=== PATIENT | male | born 1950 | race Caucasian/White ===

== ENCOUNTER → 2017-08-19 14:50 | Outpatient (CLI) | payer MEDICARE, OTHER, SELFPAY | PROVIDERS: Family Provider Family Medicine; PCP Family Medicine; Visit Provider Family Medicine | DX: L02.412 Cutaneous abscess of left axilla (principal); L03.112 Cellulitis of left axilla | CPT/HCPCS: 87070; 87077; 87186; 87205 ==

== ENCOUNTER → 2018-11-21 09:29 | Outpatient (CLI) | payer MEDICARE, OTHER, SELFPAY ==
[2017-07-23 06:22] VITALS: BMI 31.3
[2018-11-21 12:19] LABS: Hematocrit 42.2 % (40-54); Hemoglobin 13.7 g/dl (13.0-16.5); Mean Corp Hgb Conc 32.5 g/gl (32-36); Mean Corpuscular Hgb 29.8 pg (27.0-32.0); Mean Corpuscular Volume 91.9 fL (80-94); RBC Distribution Width CV 12.9 % (11.6-14.6); RBC Distribution Width SD 42.9 fl (35.1-43.9); Red Blood Count 4.59 M/mm3 (4.6-6.2); White Blood Count 6.7 K/mm3 (4.4-11.0)
[2018-11-21 12:20] LABS: Absolute Lymphocyte Count 1.36 X10^3/ul (0.83-4.51); Absolute Neutrophil Count 4.5 X10^3/uL (2.0-7.7); Basophil# 0.05 X10^3/uL; Basophil% 0.7 % (0-1); Eosinophil# 0.17 X10^3/uL; Eosinophils% 2.5 % (0-5); Lymphocyte # 1.36 X10^3/ul (4.0); Lymphocyte % 20.2 % (19-41); Mean Platelet Vol. 10.1 fl (6.2-12.0); Monocyte# 0.67 X10^3/uL; Monocyte% 9.9 % (0-10); Neutrophil # 4.47 X10^3/uL (2.7-7.7); Neutrophil % 66.4 % (47-70); POSITIVE COUNT NO; POSITIVE DIFFERENTIAL NO; POSITIVE MORPHOLOGY NO; Platelet Count 263 K/mm3 (150-450)
[2018-11-21 12:36] LABS: ALB/GLOB Ratio 0.7 RATIO (0.9-2.4); AST(SGOT) 18 U/L (15-37); Alanine Aminotransfer ALT/SGPT 28 U/L (16-61); Albumin, Serum 3.1 g/dL (3.2-5.0); Alkaline Phosphatase 74 U/L (45-117); Anion Gap 3 (5-15); BUN 20 mg/dL (7-18); BUN/Creat Ratio 22.7 RATIO (10-20); Calcium,Total 8.4 mg/dL (8.5-10.1); Chloride 107 mmol/L (98-107); Cholesterol 145 mg/dL (200); Creatinine, Serum 0.88 mg/dL (0.70-1.30); EST Glomerular Filtration Rate 91 mL/min (>60); Est Glom Filt Rate - Afr Amer 110 mL/min (>60); Globulin 4.3 g/dL (2.2-4.2); Glucose 91 mg/dL (74-106); High Density Lipoprotein 35 mg/dL; PSA,Total - Annual Screen 2.42 ng/mL (0.00-4.00); Protein, Total 7.4 g/dL (6.4-8.2); Sodium Level 139 mmol/L (136-145); Triglycerides 105 mg/dL; Very Low Density Lipoprotein 21 mg/dL (5-40)
== END ==
LOC: LAB.FUTURE 07-19 10:33 → BFHLAB 12-22 12:11
PROVIDERS: Family Provider Family Medicine; PCP Family Medicine; Visit Provider Family Medicine
DX: R53.83 Other fatigue (principal); E78.5 Hyperlipidemia, unspecified; Z12.5 Encounter for screening for malignant neoplasm of prostate
CPT/HCPCS: 36415; 80053; 80061; 84153; 85025; G0103

== ENCOUNTER 2019-07-28 14:46 | Emergency (ER) | payer MEDICARE, OTHER, SELFPAY ==
[2019-07-28 14:47] VITALS: BP 140/76; PULSE 89; RESP 16; TEMP 36.9; O2SAT 97; BMI 30.5
--- NOTE | 2019-07-28 15:18 | ED.DCSUM_ITS ---
History of Present Illness Chief Complaint: Upper Extremity Injury Informant: Patient Occurred: Today Narrative: Patient is a 69-year-old male with no past medical history presenting with atraumatic swelling of his right elbow. Patient states he is right-hand dominant. He states that over the course of today he has had increased swelling over the back of his elbow. He does feel some warmth to the area. He has some slight pressure but denies any significant pain. He denies any systemic symptoms such as fever, chills, nausea, vomiting or numbness/tingling. Patient is especially concerned because his ldewja-db-vdw had a septic elbow in the past that ended up killing him. Patient denies any new activities or repetitive motions. He notes he had a viral illness about a week and a half ago but is not sure if that is related. Past Medical History - Allergies and Home Meds Allergies/Adverse Reactions: Allergies No Known Allergies Allergy (Verified 07/28/19 14:46) Primary Care Physician: Gerber Everett DO [Primary Care Provider] - Past Medical History: None Surgical History: noncontributory Lives: Spouse/ Significant Other Smoking Status: Never smoker - Family History father Family History: Reports: Cancer Review of Systems General: Denies: Chills, Fever, Sweats ENT: Denies: Rhinorrhea, Sore throat Cardiovascular: Denies: Chest pain, Palpitations Respiratory: Denies: Dyspnea, Cough, Dyspnea on exertion Gastrointestinal: Denies: Abdominal pain, Nausea, Vomiting, Diarrhea Genitourinary: Denies: Dysuria, Hematuria, Frequency Musculoskeletal: Reports: Swelling - right elbow , Extremity Pain - right elbow . Denies: Back pain Skin: Denies: Rash, Abrasions, Wounds Neurological: Denies: Headache, Weakness, Numbness Physical Exam Vital Signs/Narrative: Vital Signs Temp Pulse Resp BP Pulse Ox 07/28/19 14:47 98.5 F 89 16 140/76 H 97 Inital Vital Signs reviewed: Yes Right Elbow: Edema, - - Normal range of motion. Large 6 cm x 3 cm area of swelling consistent with enlarged bursa. No joint effusion noted. Normal range of motion. No overriding erythema or warmth. Negative for: Abrasion, Contusion General: Well nourished, Well developed Head: Normocephalic, Atraumatic Eyes: Perrl, EOMI ENT: No Trauma, Moist Mucous Membranes Neck: Nontender, Full ROM Cardiovascular: Regular rate, Regular rhythm, No murmurs Respiratory: No distress, CTA bilaterally, Chest nontender Abdomen: Soft, Nontender, Nondistended, Normal bowel sounds Back: Nontender Skin: Normal color, No rash Neurological: Alert, Oriented x3, Cranial nerves II-XII grossly intact, Normal S trength, Normal Sensation Psychological: Normal affect Diagnostic/Tx/Re-eval - Medical Decision Making Patient has atraumatic swelling of his right elbow. He has mild pressure but no significant pain. No joint effusion associated with it. No overlying erythema or warmth. Initially I thought it was a inflamed/enlarged bursa. Aspiration only showed kaley blood and I suspect this is actually hematoma. Patient not sure exactly what could have caused it. He is placed in an Toni wrap. Patient will follow-up with his orthopedist, Dr. Hernández. He is counseled on signs of infection and reasons to return the emergency room. He verbalizes agreement understand this plan. He is discharged home in stable condition. Procedures Procedure(s): Aspiration. Sterile technique used. Right elbow is cleansed with Betadine and allowed to dry. 23-gauge needle used to inject a small amount of 1% lidocaine without epinephrine subcutaneously in the posterior elbow. Once adequate analgesia was achieved an 18-gauge needle then advanced with negative pressure. No fluid is aspirated. [place] and redirected. I did obtain about 5 cc of dark red blood. Procedure then terminated. No immediate complications. Patient tolerated procedure well with minimal discomfort. ED Disposition - Plan for ED Patient: Disposition: Home or Assisted Living Diagnosis: Swelling of right elbow, Hematoma Instructions: Hematoma Referrals: Gerber Everett DO [Primary Care Provider] - Jarad Salguero DO [STAFF PHYSICIAN] - Additional Instructions: Call Dr. Zulema Hernández on Wednesday to arrange short follow-up for your elbow. I do not think you have an infection of the elbow. I suspect you have a collection of blood in her elbow which is what is causing the swelling. If you have worsening pain, redness over the site or fever then return to the emergency room immediately. Wear the Toni wrap as much as possible as the compression will help with the swelling.
== END 2019-07-28 16:30 | disposition home or self-care (01) ==
PROVIDERS: Emergency Provider Emergency Medicine; Family Provider Family Medicine; PCP Family Medicine
DX: M25.421 Effusion, right elbow (principal); S50.01XA Contusion of right elbow, initial encounter; X58.XXXA Exposure to other specified factors, initial encounter; Y93.9 Activity, unspecified; Y92.9 Unspecified place or not applicable; Y99.9 Unspecified external cause status
CPT/HCPCS: 10140; 99283

== ENCOUNTER → 2019-12-26 10:03 | Outpatient (CLI) | payer MEDICARE, OTHER, SELFPAY ==
[2019-12-26 12:41] LABS: Absolute Lymphocyte Count 1.61 X10^3/uL (0.83-4.51); Absolute Neutrophil Count 3.9 X10^3/uL (2.0-7.7); Basophil# 0.04 X10^3/uL; Basophil% 0.6 % (0-1); Eosinophil# 0.21 X10^3/uL; Eosinophils% 3.3 % (0-5); Hematocrit 44.3 % (40-54); Lymphocyte # 1.61 X10^3/ul (4.0); Lymphocyte % 25.1 % (19-41); Mean Corp Hgb Conc 31.6 g/dL (32-36); Mean Corpuscular Volume 95.1 fL (80-94); Monocyte# 0.67 X10^3/uL; Monocyte% 10.4 % (0-10); NRBC Flagged by Analyzer 0 % (0-5); Neutrophil # 3.87 X10^3/uL (2.7-7.7); Neutrophil % 60.3 % (47-70); Platelet Count 170 K/mm3 (150-450); RBC Distribution Width SD 45.3 fl (35.1-43.9); Red Blood Count 4.66 M/mm3 (4.6-6.2); White Blood Count 6.4 K/mm3 (4.4-11.0)
[2019-12-26 12:56] LABS: ALB/GLOB Ratio 1.1 RATIO (0.9-2.4); AST(SGOT) 19 U/L (15-37); Alanine Aminotransfer ALT/SGPT 24 U/L (16-61); Albumin, Serum 3.9 g/dL (3.2-5.0); Alkaline Phosphatase 67 U/L (45-117); Anion Gap 8 (5-15); BUN 21 mg/dL (7-18); Calcium,Total 8.5 mg/dL (8.5-10.1); Chloride 105 mmol/L (98-107); Cholesterol 208 mg/dL (200); Creatinine, Serum 0.91 mg/dL (0.70-1.30); EST Glomerular Filtration Rate 87 mL/min (>60); Est Glom Filt Rate - Afr Amer 105 mL/min (>60); Globulin 3.4 g/dL (2.2-4.2); Glucose 91 mg/dL (74-106); High Density Lipoprotein 50 mg/dL; PSA,Total - Annual Screen 2.11 ng/mL (0.00-4.00); Potassium 3.7 mmol/L (3.5-5.1); Protein, Total 7.3 g/dL (6.4-8.2); Sodium Level 141 mmol/L (136-145); Triglycerides 125 mg/dL; Very Low Density Lipoprotein 25 mg/dL (5-40)
[2019-12-27 06:50] LABS: SAR-COV-2 IGG ANTIBODY Negative (Negative)
== END ==
PROVIDERS: PCP Family Medicine; Visit Provider Family Medicine
DX: Z00.01 Encounter for general adult medical examination with abnormal findings (principal); Z12.5 Encounter for screening for malignant neoplasm of prostate; E78.5 Hyperlipidemia, unspecified
CPT/HCPCS: 36415; 80053; 80061; 84153; 85025; 86769; G2023; G0103

== ENCOUNTER → 2021-04-09 10:37 | Outpatient (CLI) | payer MEDICARE, OTHER, SELFPAY ==
--- NOTE | 2021-04-09 10:43 | STEWCON_ITS ---
Reason For Study: CHEST TIGHTNESS Stress Results Protocol: Galo Protocol WITH DEFINITY Maximum Predicted HR: 148 bpm Target HR: 126 bpm % Maximum Predicted HR: 99 % DurationHeart Rate Stage (mm:ss) (bpm) BP Comment BASELINE 69 162/884 CC DEFINITY STAGE 1 3:00 123 182/82 STAGE 2 3:00 136 202/64SLIGHT SOB, NO CHEST PAIN STAGE 3 0:30 146 / INCREASED SOB, SLIGHT FATIGUE RECOVERY 103 152/78 Stress Duration: 6:30 mm:ss Maximum Stress HR: 146 bpm METS: 7 Baseline Echocardiogram Findings Stress Echo Wall motion Data Resting WM Intermediate WM Stress WM Resting Wall Motion Wall Motion Stress All segments Normal. All segments Hyperkinetic. Ejection Fraction 65 %. Ejection Fraction 75 %. Stress Results Heart rate response: Appropriate Blood pressure response: Resting hypertension-exaggerated response Arrhythmias: There was a rare PVC during exercise Functional capacity: Average Stop secondary to: Dyspnea. EKG Data Baseline ECG: Sinus rhythm. Peak exercise ECG: Somatic/motion artifact with no obvious ECG changes. Symptoms with Stress No complaint of chest discomfort during exercise or recovery. ECHO/Stress Test Echo W/Contrast Interpretation Summary Contrast injection performed Negative (adequate) stress echocardiogram Ordering Physician: Gerber Everett Referring Physician: Gerber Everett Performed By: Lin Thapa, RDCS, RVT
== END ==
PROVIDERS: PCP Family Medicine; Referring Provider Family Medicine; Visit Provider Family Medicine
DX: R07.9 Chest pain, unspecified (principal); R94.31 Abnormal electrocardiogram [ECG] [EKG]
CPT/HCPCS: 93017; 93350; Q9957; A4216; C8928; J3490

== ENCOUNTER → 2022-03-19 | Outpatient (CLI) | payer MEDICARE, OTHER, SELFPAY ==
--- NOTE | 2022-03-19 08:00 | CT_ITS ---
EXAM: CT ABDOMEN AND PELVIS WITHOUT INTRAVENOUS CONTRAST CLINICAL INDICATION: abdominal pain TECHNIQUE: Helically acquired images were obtained of the abdomen and pelvis without intravenous contrast. This CT exam was performed using one or more of the following dose reduction techniques: automated exposure control, adjustment of the mA and/or kV according to patient size, and/or use of iterative reconstruction technique. This report was created using [employer] report generation technology. CONTRAST: Oral Redi-CAT COMPARISON: None. FINDINGS: LOWER THORAX: Small hiatal hernia. ABDOMEN: LIVER: Normal. Homogeneous. GALLBLADDER AND BILE DUCTS: Normal. No calcified gallstones. No gallbladder distention or wall edema. No intra- or extrahepatic biliary ductal dilation. PANCREAS: Normal. No focal cystic mass. SPLEEN: Normal. Normal size without focal cystic or solid mass. ADRENALS: Normal. No nodules. KIDNEYS AND URETERS: Bilateral low-density renal lesions consistent with cysts. No follow-up indicated. No hydronephrosis. STOMACH AND BOWEL: Diverticulosis of the colon noted without evidence of acute diverticulitis. PELVIS: APPENDIX: No evidence of acute appendicitis. BLADDER: 2 cm right-sided urinary bladder diverticulum. Urinary bladder is incompletely visualized secondary to prominent artifacts from hip prosthesis. REPRODUCTIVE: Prostate gland is mildly enlarged. ABDOMEN and PELVIS: INTRAPERITONEAL SPACE: Normal. No ascites or other fluid collection. No free air. BONES/JOINTS: Moderate multilevel disc degeneration noted within the spine. SOFT TISSUES: Multiple fat-containing supraumbilical hernia is noted as well as small fat-containing umbilical hernia. Small fat-containing right inguinal hernia. VASCULATURE: Normal. Abdominal aorta is non-dilated. LYMPH NODES: Normal. No enlarged lymph nodes. CT/Abdomen/Pel W ORAL Cont Only IMPRESSION: 1. No acute abdominal or pelvic abnormality. 2. Fat-containing supraumbilical, umbilical and right inguinal hernias. 3. Diverticulosis coli. 4. Urinary bladder diverticulum which may be secondary to chronic bladder outlet obstruction. Electronically Signed: Maurice Purdy MD at 8:27 EDT ,
== END | disposition home or self-care (01) ==
LOC: CT 07:54
PROVIDERS: PCP Family Medicine; Referring Provider Surgery; Visit Provider Surgery
DX: R10.9 Unspecified abdominal pain (principal)
CPT/HCPCS: 74176

== ENCOUNTER 2022-05-01 07:17 | Day surgery (SDC) | payer MEDICARE, OTHER, SELFPAY ==
[2022-05-01] VITALS (7 sets, daily range): BP systolic 106–145; BP diastolic 63–72; PULSE 65–68; RESP 16; TEMP 36.4–36.8; O2SAT 97; BMI 29.9
--- NOTE | 2022-05-01 07:40 | PCM.HP.BLA ---
History and Physical Date of Admission: 05/01/22 No Known Allergies Allergy (Verified 03/25/22 13:03) Medications NK? 07/28/19 [History Confirmed 03/25/22] PFSH Medical History?(Updated 03/13/22 @ 09:[address] Micheal Little MD) Arthritis Normal colonoscopy Social History?(Updated 03/13/22 @ 08:53 by Ida Segovia) Smoking Status:? Never smoker alcohol intake:? never substance use type:? does not use HPI HPI HPI: CONSTANTINO SANTIAGO, is a 71 M who presents to the office today for ongoing surgical discussion regarding a complex ventral hernia.? I saw this patient in the office on March 13, [address].? Also recommended a screening colonoscopy which is currently scheduled.? The report below does not adequately describe the complexity of fascial loss and multiple defect ventral incisional hernia that this patient has.? At one location I measured a 7.5 cm deficit.? The patient however has multiple areas of fascial loss. The patient notes that over the past year he has had perhaps 5 episodes where he has had some nonspecific mental pain.? He has always been able to get it to resolve. March 19, 2022 EXAM:? CT ABDOMEN AND PELVIS WITHOUT INTRAVENOUS CONTRAST CLINICAL INDICATION:? abdominal pain TECHNIQUE:? Helically acquired images were obtained of the abdomen and pelvis without intravenous contrast.? This CT exam was performed using one or more of the following dose reduction techniques:? automated exposure control, adjustment of the mA and/or kV according to patient size, and/or use of iterative reconstruction technique.? This report was created using [employer] report generation technology. CONTRAST:? Oral Redi-CAT COMPARISON:? None. FINDINGS: LOWER THORAX:? Small hiatal hernia. ABDOMEN: LIVER:? Normal.? Homogeneous. GALLBLADDER AND BILE DUCTS:? Normal.? No calcified gallstones.? No gallbladder distention or wall edema.? No intra- or extrahepatic biliary ductal dilation. PANCREAS:? Normal.? No focal cystic mass. SPLEEN:? Normal.? Normal size without focal cystic or solid mass. ADRENALS:? Normal.? No nodules. KIDNEYS AND URETERS:? Bilateral low-density renal lesions consistent with cysts.? No follow-up indicated.? No hydronephrosis. STOMACH AND BOWEL:? Diverticulosis of the colon noted without evidence of acute diverticulitis. PELVIS: APPENDIX:? No evidence of acute appendicitis. BLADDER:? 2 cm right-sided urinary bladder diverticulum.? Urinary bladder is incompletely visualized secondary to prominent artifacts from hip prosthesis. REPRODUCTIVE:? Prostate gland is mildly enlarged. ABDOMEN and PELVIS: INTRAPERITONEAL SPACE:? Normal.? No ascites or other fluid collection.? No free air. BONES/JOINTS: Moderate multilevel disc degeneration noted within the spine. SOFT TISSUES:? Multiple fat-containing supraumbilical hernia is noted as well as small fat-containing umbilical hernia.? Small fat-containing right inguinal hernia. VASCULATURE:? Normal.? Abdominal aorta is non-dilated. LYMPH NODES:? Normal.? No enlarged lymph nodes. CT/Abdomen/Pel W ORAL Cont Only IMPRESSION: ? 1.? No acute abdominal or pelvic abnormality. ? 2.? Fat-containing supraumbilical, umbilical and right inguinal hernias. ? 3.? Diverticulosis coli. ? 4.? Urinary bladder diverticulum which may be secondary to chronic bladder outlet obstruction. ? Electronically Signed: Maurice Purdy MD at 8:27 EDT , ROS General General: Yes fatigue Assessment and Plan Assessment and Plan (1) Ventral incisional hernia without obstruction or gangrene: ?Status:?Acute ?Plan: I have demonstrated the patient's CT scan to him.? I have demonstrated him the multiple defects with extensive fascial loss and various combinations of lobulated hernia sacs with mostly fibrofatty tissue.? I have described to him that he would be a more complicated repair likely benefiting from a component separation.? With the loss of fascia over an extended length I believe that a tertiary referral would be quite appropriate and I have made this recommendation to him.? As he is not completely asymptomatic and has had several episodes of discomfort I do believe it would be pertinent to him even at age 71 to at least proceed with consultation so we can decipher whether the risk benefit would be in his favor for repair. He has had an opportunity to ask and have questions answered.? He is agreeable to the referral.? We will refer him to Dr. Wyatt at the [facility]. The plan to proceed with a screening colonoscopy with possible biopsy or polypectomy as indicated. He is aware of the technique, benefit, risk, alternatives. He has had an opportunity to ask and have questions answered. We will proceed as noted. Copy: Dr. Gerber Little M.D., F.A.C.S. I have re-examined the patient. There are no clinical changes since date of exam.
[2022-05-01] MEDS: Lactated Ringers 1,000 ML 15 ML IV (07:52)
--- NOTE | 2022-05-01 08:30 | COLBX_PTH ---
PATIENT: CONSTANTINO SANTIAGO LOC: EN U#:[id number] AGE/SX: 71/M ROOM: RE05/01/[address]: Dr. Michael Little MD : 1950 BED: DIS: 05/01/2022 SPEC #: [id number] RECD: 05/01/22 12:52 STATUS: SHOSHANA REJerrica #: [id number] NE: 05/01/22 08:[address]: Michael Little DEPT: SURGICAL PATHOLOGY RECD BY: Jammie Moctezuma ENTERED: 05/01/22 13:23 SP TYPE: COLON BX OTHR DR: Dr. Gerber Everett, Tissues: Descending colon Procedures: Surgery Specimen Level IV HEADER OPERATION: Colonoscopy (MAC), polypectomy PRE-OP DIAGNOSIS: TISSUE SUBMITTED: Descending polyp MICROSCOPIC DIAGNOSIS Descending colon polyp, polypectomy: Tubular adenoma. Fragments of fecal material. SJ:shila 05/04/2022 MICROSCOPIC DESCRIPTION Slides are reviewed. GROSS DESCRIPTION Received in fixative is one container labeled with the patient's name and designated descending polyp. The specimen consists of a piece of mccallum-pink polyp measuring 0.5 x 0.5 x 0.2 cm. Multiple fragments of fecal material mixed with mucoid tissue are also present. The entire specimen is submitted in one cassette. / SJ:rg 05/01/2022 TC:1 CPT: 14965
--- NOTE | 2022-05-01 08:43 | OP.COLON_ITS ---
Patient Name: Saulo Sales Procedure Date: 05/01/2022 8:12 AM Date of : 1950 Age: 71 Procedure: Colonoscopy Indications: High risk colon cancer surveillance: Personal history of colonic polyps Providers: Michael Little MD Referring MD: Gerber Everett Medicines: See the Anesthesia note for documentation of the administered medications Patient Profile: Last Colonoscopy: date unknown. Complications: No immediate complications. Procedure: Pre-Anesthesia Assessment: - Prior to the procedure, a History and Physical was performed, and patient medications and allergies were reviewed. The patient's tolerance of previous anesthesia was also reviewed. The risks and benefits of the procedure and the sedation options and risks were discussed with the patient. All questions were answered, and informed consent was obtained. Prior Anticoagulants: The patient has taken no previous anticoagulant or antiplatelet agents. ASA Grade Assessment: II - A patient with mild systemic disease. After reviewing the risks and benefits, the patient was deemed in satisfactory condition to undergo the procedure. After I obtained informed consent, the scope was passed under direct vision. Throughout the procedure, the patient's blood pressure, pulse, and oxygen saturations were monitored continuously. The adult colonoscope was introduced through the anus and advanced to the ileocolonic anastomosis. The colonoscopy was performed without difficulty. The patient tolerated the procedure well. The quality of the bowel preparation was good. Ileocolonic anastomosis were photographed. Scope In: 8:22:52 AM Scope Withdrawal Time 0 hours 7 minutes 53 seconds Scope Out: 8:36:55 AM Total Procedure Duration Time 0 hours 14 minutes 3 seconds Findings: Hemorrhoids were found on perianal exam. slightly enlarged. No mass There was evidence of a prior functional end-to-end ileo-colonic anastomosis in the ascending colon. This was patent and was characterized by healthy appearing mucosa. A 5 mm polyp was found in the proximal descending colon. The polyp was sessile. The polyp was removed with a hot snare. Resection and retrieval were complete. Multiple diverticula were found in the sigmoid colon and descending colon. Impression: - Hemorrhoids found on perianal exam. - Patent functional end-to-end ileo-colonic anastomosis, characterized by healthy appearing mucosa. - One 5 mm polyp in the proximal descending colon, removed with a hot snare. Resected and retrieved. - Diverticulosis in the sigmoid colon and in the descending colon. Recommendation: - Discharge patient to home. - Resume previous diet. - Continue present medications. - Repeat colonoscopy in 5 years for surveillance. - Telephone my office for pathology results in 1 week. Procedure Code(s): --- Professional --- 35878, Colonoscopy, flexible; with removal of tumor(s), polyp(s), or other lesion(s) by snare technique Diagnosis Code(s): --- Professional --- Z86.010, Personal history of colonic polyps K64.9, Unspecified hemorrhoids Z98.0, Intestinal bypass and anastomosis status D12.4, Benign neoplasm of descending colon K57.30, Diverticulosis of large intestine without perforation or abscess without bleeding CPT copyright 2017 [employer]. All rights reserved. The codes documented in this report are preliminary and upon java front end web developer review may be revised to meet current compliance requirements. Michael Little MD 05/01/2022 8:43:30 AM This report has been signed electronically. Number of Addenda: 0 Note Initiated On: 05/01/2022 8:12 AM
--- NOTE | 2022-05-01 08:44 | OP.CCLET_ITS ---
05/01/2022 Bee Panda Md Re : Colonoscopy procedure for Saulo Sales Dear Amarilys This procedure was performed on Sunday, May 01, 2022. My impressions and recommendations are as follows: Impressions : - Hemorrhoids found on perianal exam. - Patent functional end-to-end ileo-colonic anastomosis, characterized by healthy appearing mucosa. - One 5 mm polyp in the proximal descending colon, removed with a hot snare. Resected and retrieved. - Diverticulosis in the sigmoid colon and in the descending colon. Recommendations : - Discharge patient to home. - Resume previous diet. - Continue present medications. - Repeat colonoscopy in 5 years for surveillance. - Telephone my office for pathology results in 1 week. My findings are described in the full procedure note, which is enclosed. If I can be of further assistance, please feel free to contact me at Doctor phone number(s): Work: . Sincerely, Michael Little MD 05/01/2022 8:43:30 AM This report has been signed electronically.
== END 2022-05-01 09:44 | disposition home or self-care (01) ==
LOC: EN 07:18 → AC 07:19
PROVIDERS: PCP Family Medicine; Referring Provider Family Medicine; Visit Provider Surgery
PROC: 0DJD8ZZ Inspection of Lower Intestinal Tract, Via Natural or Artificial Opening Endoscopic (ICD-10-PCS; CPT 45378; principal; 2022-05-01 08:25)
DX: D12.4 Benign neoplasm of descending colon (principal); K57.30 Diverticulosis of large intestine without perforation or abscess without bleeding; K64.9 Unspecified hemorrhoids; K43.2 Incisional hernia without obstruction or gangrene; Z79.82 Long term (current) use of aspirin; Z86.010 Personal history of colon polyps; Z98.0 Intestinal bypass and anastomosis status
CPT/HCPCS: 45385; 88305; J7120

== ENCOUNTER → 2023-03-22 | Outpatient (CLI) | payer MEDICARE, OTHER, SELFPAY ==
[2023-03-22 12:49] LABS: Absolute Lymphocyte Count 1.74 X10^3/uL (0.83-4.51); Absolute Neutrophil Count 4.6 X10^3/uL (2.0-7.7); Basophil# 0.05 X10^3/uL; Basophil% 0.7 % (0-1); Hematocrit 44.1 % (40-54); Lymphocyte # 1.74 X10^3/ul (0.83-4.51); Mean Corp Hgb Conc 31.7 g/dL (32-36); Mean Corpuscular Hgb 29.9 pg (27.0-32.0); Mean Platelet Vol. 10.7 fl (6.2-12.0); Monocyte# 0.86 X10^3/uL; Monocyte% 11.3 % (0-10); NRBC Flagged by Analyzer 0 % (0-5); Neutrophil % 60.6 % (47-70); Platelet Count 190 K/mm3 (150-450); RBC Distribution Width CV 13.2 % (11.6-14.6); RBC Distribution Width SD 45.7 fl (35.1-43.9); Red Blood Count 4.69 M/mm3 (4.6-6.2); White Blood Count 7.6 K/mm3 (4.4-11.0)
[2023-03-22 13:34] LABS: ALB/GLOB Ratio 0.9 RATIO (0.9-2.4); AST(SGOT) 14 U/L (15-37); Alanine Aminotransfer ALT/SGPT 21 U/L (16-61); Albumin, Serum 3.6 g/dL (3.2-5.0); Alkaline Phosphatase 77 U/L (45-117); Anion Gap 5 (5-15); BUN 20 mg/dL (7-18); Calcium,Total 8.8 mg/dL (8.5-10.1); Chloride 105 mmol/L (98-107); Cholesterol 185 mg/dL (200); Creatinine, Serum 0.91 mg/dL (0.70-1.30); EST Glomerular Filtration Rate 87 mL/min (>60); Est Glom Filt Rate - Afr Amer 105 mL/min (>60); Globulin 4.1 g/dL (2.2-4.2); Glucose 96 mg/dL (74-106); High Density Lipoprotein 48 mg/dL; Potassium 4.2 mmol/L (3.5-5.1); Protein, Total 7.7 g/dL (6.4-8.2); Sodium Level 138 mmol/L (136-145); Triglycerides 165 mg/dL; Very Low Density Lipoprotein 33 mg/dL (5-40)
[2023-03-25 10:46] LABS: PSA,Total - Annual Screen 1.13 ng/mL (0.00-4.00)
== END | disposition home or self-care (01) ==
LOC: BFHLAB 11:06
PROVIDERS: PCP Family Medicine; Referring Provider Family Medicine; Visit Provider Family Medicine
DX: I10 Essential (primary) hypertension (principal)
CPT/HCPCS: 36415; 80053; 80061; 84153; 85025; G0103

== ENCOUNTER → 2023-04-29 | Outpatient (CLI) | payer MEDICARE, OTHER, SELFPAY ==
--- NOTE | 2023-04-29 14:23 | STRESSREP ---
Stress Test Report Date: 04/29/2023 Procedure: Exercise tolerance test/imaging study Indications: Hypertension Consent: Per the patient Procedure: The patient exercised on a Galo protocol for 6 minutes and 1 second achieving a peak heart rate of 141 bpm (96% predicted maximal heart rate) with a peak blood pressure 202/68 mmHg and a peak MET capacity of 7.0 METs. The baseline ECG demonstrated sinus rhythm. The peak exercise ECG demonstrated no ischemic changes. There were no cardiac dysrhythmias pretest, during exercise, or recovery. The functional capacity was considered average for age. There was no complaint of chest discomfort during exercise or recovery. The examination was discontinued secondary to target heart rate being achieved. The patient was injected with 14.3 mCi of technetium 99m Cardiolite and subsequently rest SPECT Cardiolite nuclear imaging was obtained in the horizontal long, vertical long, and short axis views. Post-exercise, the patient was injected with 43.4 mCi of technetium 99m Cardiolite and subsequently stress SPECT Cardiolite nuclear imaging was obtained in the horizontal long, vertical long, and short axis views. A gated Cardiolite study at peak stress was obtained. Rest and stress SPECT Cardiolite nuclear imaging status post realignment, normalization, and attenuation correction, demonstrates the appearance of relative uniform tracer uptake and myocardial perfusion appearing within normal limits. There is end systolic thickening and brightening. The gated Cardiolite study demonstrates myocardial thickening and inward wall motion. The reported LVEF is 80%. Impression: 1. Technically adequate (percent predicted maximal heart rate greater than 85%) exercise tolerance test 2. Peak exercise ECG no ischemic changes 3. There were no cardiac dysrhythmias pretest, during exercise, or recovery 4. Rest and stress SPECT Cardiolite nuclear imaging demonstrate relative uniform tracer uptake and myocardial perfusion appearing within normal limits. 5. The gated Cardiolite study reports an LVEF of 80%. This note was generated with [employer] softwareation software. It may contain incorrect words, spelling, and punctuation that were not noted in checking the note before signing.
== END | disposition home or self-care (01) ==
LOC: CVS 06:16
PROVIDERS: PCP Family Medicine; Referring Provider Family Medicine; Visit Provider Family Medicine
DX: R94.31 Abnormal electrocardiogram [ECG] [EKG] (principal); I44.4 Left anterior fascicular block; I10 Essential (primary) hypertension
CPT/HCPCS: 78452; 93017; A9500; A4216; J2785

== ENCOUNTER → 2023-08-31 | Outpatient (CLI) | payer MEDICARE, OTHER, SELFPAY ==
[2023-08-31 12:19] LABS: Hematocrit 45.3 % (40-54); Hemoglobin 14.6 g/dL (13.0-16.5); Mean Corp Hgb Conc 32.2 g/dL (32-36); Mean Corpuscular Hgb 30.1 pg (27.0-32.0); Mean Corpuscular Volume 93.4 fL (80-94); Mean Platelet Vol. 10.2 fl (6.2-12.0); Platelet Count 201 K/mm3 (150-450); RBC Distribution Width CV 13.1 % (11.6-14.6); RBC Distribution Width SD 44.7 fl (35.1-43.9); Red Blood Count 4.85 M/mm3 (4.6-6.2); White Blood Count 7.9 K/mm3 (4.4-11.0)
[2023-08-31 13:08] LABS: Anion Gap 5 (5-15); BUN 21 mg/dL (7-18); BUN/Creat Ratio 21.5 RATIO (10-20); Calcium,Total 8.9 mg/dL (8.5-10.1); Chloride 107 mmol/L (98-107); Creatinine, Serum 0.98 mg/dL (0.70-1.30); EST Glomerular Filtration Rate 79 mL/min (>60); Est Glom Filt Rate - Afr Amer 96 mL/min (>60); Glucose 107 mg/dL (74-106); Potassium 3.8 mmol/L (3.5-5.1); Sodium Level 139 mmol/L (136-145); Thyroid Stim Hormone (TSH) 1.66 uIU/mL (0.358-3.74)
== END | disposition home or self-care (01) ==
LOC: LAB 11:16
PROVIDERS: Internal Medicine Cardiovascular Disease; PCP Family Medicine; Referring Provider Physician Assistant; Visit Provider Physician Assistant
DX: Z01.818 Encounter for other preprocedural examination (principal); E78.5 Hyperlipidemia, unspecified
CPT/HCPCS: 36415; 80048; 84443; 85027

== ENCOUNTER 2024-10-16 16:06 | Observation (INO) | payer MEDICARE, OTHER, SELFPAY ==
[2024-10-16] VITALS (11 sets, daily range): BP systolic 91–135; BP diastolic 57–69; PULSE 83–109; RESP 16–25; TEMP 36.6–36.7; O2SAT 93–98; BMI 32.8; BMI 33.1
--- NOTE | 2024-10-16 16:48 | EKG12_ITS ---
Test Reason : CP Blood Pressure : */* mmHG Vent. Rate : 108 BPM Atrial Rate : 108 BPM P-R Int : 178 ms QRS Dur : 94 ms QT Int : 338 ms P-R-T Axes : 58 -61 32 degrees QTcB Int : 452 ms Sinus tachycardia with Premature atrial complexes Left anterior fascicular block Abnormal ECG Confirmed by JESÚS LOO, DARIUS ([id number]), scientific editor KARISSA DUMAS ([id number]) on 10/17/2024 8:18:13 AM Referred By: YIN/KELLI Confirmed By: DARIUS ESPINOSA MD
--- NOTE | 2024-10-16 17:03 | RAD_ITS ---
PROCEDURE: CHEST 1 VIEW (PORTABLE) 10/16/2024 REASON FOR EXAM: CHEST PAIN TECHNIQUE: Frontal view of the chest. COMPARISON: None. FINDINGS: The heart size is normal. Bibasilar effusion/atelectasis. No pneumothorax. The bones are unremarkable. RAD/Chest 1 View (Portable) IMPRESSION: Bibasilar effusion/atelectasis. Reading Location: [facility]
[2024-10-16 17:15] LABS: Basophil# 0.05 X10^3/uL; Basophil% 0.3 % (0-1); Eosinophil# 0.17 X10^3/uL; Eosinophils% 1.1 % (0-5); Hematocrit 41.9 % (40-54); Hemoglobin 13.6 g/dL (13.0-16.5); Lymphocyte % 8.5 % (19-41); Mean Corp Hgb Conc 32.5 g/dL (32-36); Mean Corpuscular Hgb 30.4 pg (27.0-32.0); Mean Corpuscular Volume 93.7 fL (80-94); Mean Platelet Vol. 12.5 fl (6.2-12.0); Monocyte# 1.73 X10^3/uL; Monocyte% 11.3 % (0-10); NRBC Flagged by Analyzer 0 % (0-5); Neutrophil # 11.98 X10^3/uL (2.7-7.7); Neutrophil % 78.1 % (47-70); POSITIVE COUNT YES; POSITIVE DIFFERENTIAL YES; RBC Distribution Width CV 13.4 % (11.6-14.6); RBC Distribution Width SD 46.5 fl (35.1-43.9); Red Blood Count 4.47 M/mm3 (4.6-6.2); White Blood Count 15.3 K/mm3 (4.4-11.0)
[2024-10-16 18:03] LABS: Anion Gap 13 (5-15); BUN 24 mg/dL (4-19); BUN/Creat Ratio 22.4 RATIO (10-20); Calcium,Total 9.1 mg/dL (7.6-11.0); Carbon Dioxide 18.2 mmol/L (21.0-32.0); Chloride 100 mmol/L (98-108); Creatinine, Serum 1.05 mg/dL (0.70-1.20); EST Glomerular Filtration Rate 74 (>60); Estimated Creatinine Clearance 70.01 ml/min (50-250); Glucose 121 mg/dL (70-99); Potassium 5.7 mmol/L (3.3-5.1); Sodium Level 131 mmol/L (133-145); Troponin T High Sensitivity 22 ng/L (<=22)
[2024-10-16 18:21] LABS: Differential Indicated SCAN CRITERIA MET
[2024-10-16 18:22] LABS: Atypical Lymphocyte 1+ %
[2024-10-16 18:25] LABS: Anisocytosis 1+; Burr Cells 1+
[2024-10-16 18:26] LABS: Hypersegmented Neutrophils RARE; Pathologist Review May foll; Platelet Estimate ADEQUATE (ADEQ)
--- NOTE | 2024-10-16 18:43 | ED.VIS.CHEST ---
HPI History of Present Illness Chief Complaint: Chest Pain Informant: patient and spouse/S.O. Narrative Narrative: 74-year-old male presenting to the emergency room chief complaint of chest pain. Patient notes that over the past couple weeks he has had several episodes of chest pain going across his chest that is worse when he takes a deep breath. Typically he will take naproxen and it goes away. He denies any DVT PE risk factors. He states that recently has been trying to adjust his posture standing more upright. He also has had some deep tissue massages which he wonders may have affected his chest wall. He notes he had an episode after over eating but that felt different and was more midsternal going into his back. He denies any exertional symptoms. He has a cardiology appointment on with Dr. Torres. When asked to describe the pain he states it is just a chest pain that goes across the anterior surface of his chest [facility] Medical History LAFB (left anterior fascicular block) Essential hypertension Hyperlipidemia Vitamin D deficiency MRSA (methicillin resistant Staphylococcus aureus) Hiatal hernia with GERD Wears glasses Back pain Injury of head and neck Non-smoker History of stress test Normal stress echocardiogram Ventral incisional hernia without obstruction or gangrene Normal colonoscopy Arthritis Personal history of colonic polyps GERD (gastroesophageal reflux disease) Home Medications ?Medication ?Instructions ?Recorded ?Last Taken ?Type losartan 25 mg tablet 25 mg PO DAILY #90 tabs 08/27/23 Unknown Rx Allergy/AdvReac Type Severity Reaction Status Date / Time No Known Allergies Allergy Verified 10/16/24 16:12 Family History Mother Colon cancer Other Esophagus cancer Surgical History History of cardiac catheterization History of colon resection Hx of total hip arthroplasty (~2016) History of carpal tunnel surgery of right wrist Social History household members: spouse Smoking Status: Never smoker alcohol intake: never substance use type: does not use ROS ROS ED Constitutional Constitutional ED: Denies chills, fever(s) or weight loss Eyes Eyes: Denies change in vision or diplopia ENT ENT ED: Denies ear pain, rhinorrhea or sore throat Cardiovascular Cardiovascular: Reports chest pain; Denies orthopnea, palpitations or racing heartbeat Respiratory/Chest Respiratory/Chest: Denies cough, dyspnea or orthopnea Gastrointestinal Gastrointestinal: Denies abdominal pain, diarrhea, nausea or vomiting Genitourinary Genitourinary ED: Denies dysuria, hematuria or urinary frequency Musculoskeletal Musculoskeletal: Denies arthralgias or myalgias Integumentary Denies abscess or rash Neurologic Neurologic: Denies headache(s) or weakness Psychiatric Psychiatric: Denies anxiety, depression, suicidal ideation or suicidal thoughts Endocrine Endocrinology: Denies polydipsia, polyphagia or polyuria Allergic/Immunologic Allergic/Immunologic ED: Denies mouth swelling, tongue swelling or urticaria EXAM Physical Exam Const Vital Signs: 10/16/24 16:07 10/16/24 16:48 10/16/24 17:07 Temperature 98.1 F Temperature Source Temporal Pulse Rate 109 H 98 Respiratory Rate 17 17 Blood Pressure 112/62 110/62 Blood Pressure Mean 78 78 Pulse Ox 95 95 Oxygen Delivery Method Room Air Room Air Room Air 10/16/24 18:00 10/16/24 19:00 10/16/24 20:00 Temperature Temperature Source Pulse Rate 95 90 87 Respiratory Rate 22 H 24 H 19 H Blood Pressure 135/57 H 112/63 91/68 Blood Pressure Mean 83 79 75 Pulse Ox 95 93 95 Oxygen Delivery Method Room Air Room Air Room Air Positive well nourished and well developed General Appearance ED: well developed HEENT Reports normocephalic, head/scalp atraumatic and moist mucous membranes Eyes PERRL and EOMs intact bilaterally Neck no lymphadenopathy, supple and no JVD Resp normal respiratory effort and clear to auscultation bilaterally Cardio regular rate, regular rhythm and no murmurs GI normal to inspection, nondistended, normoactive bowel sounds and non-tender Palpation: soft Back/Spine no CVA tenderness and normal ROM Extremity normal to inspection General Extremety ED: Negative for edema General Extremity: Negative for edema Neuro oriented x3 and CN's II-XII intact bilaterally Sensorium / Orientation: alert Motor Exam: strength 5/5 throughout Psych mental status grossly normal Mood & Affect: Negative for depressed or tearful Skin no rashes or lesions noted and no wounds MDM MDM MDM Narrative Medical decision making narrative: Differential diagnosis includes but not limited to musculoskeletal chest pain GERD acute coronary syndrome hypertension pulmonary embolism aortic dissection aneurysm EKG demonstrates a sinus tachycardia ventricular rate of 108 bpm with left anterior fascicular block. This appears grossly unchanged from prior. My independent interpretation of the chest x-ray is small pleural effusion at the left base, Normal mediastinal silhouette. Patient's heart rate Into the 90s. He is not dyspneic. He is asymptomatic at this time. Given that this is episodic I do not believe that this is pulmonary embolism. White count nonspecifically elevated 15.3 hemoglobin is 13.6. Initial troponin is 22. Glucose of 121. CO2 curiously low at 18.2 potassium is 5.7 but this is hemolyzed. Delta troponin was obtained and is 31. This represents a delta of 9 and is thus abnormal. A CTA of the chest was obtained. This demonstrated a pericardial effusion. There is coronary calcification of the LAD. Small pleural effusions with atelectatic changes. I will be speaking with the hospitalist regarding admission for further cardiac evaluation. Patient and his are comfortable with this plan History & Record Review Discussion w/independent historian: Patient and Family Lab Data Attestation: I reviewed the patient's lab results. Labs: Laboratory Results - last 24 hr 10/16/24 10/16/24 16:59 18:49 WBC 15.3 H RBC 4.47 L Hgb 13.6 Hct 41.9 MCV 93.7 MCH 30.4 MCHC 32.5 RDW Std Deviation 46.5 H RDW Coeff of Young 13.4 Plt Count TNP MPV 12.5 H Immature Gran % (Auto) 0.700 Neut % (Auto) 78.1 H Lymph % (Auto) 8.5 L [place] % (Auto) 11.3 H Eos % (Auto) 1.1 Baso % (Auto) 0.3 Absolute Neuts (auto) 12.0 H Absolute Lymphs (auto) 1.30 Nucleated RBC % 0 Diff Path Review May foll Hypersegmented Neuts RARE H Atypical Lymphocytes 1+ Platelet Estimate ADEQUATE Anisocytosis 1+ [place] Cells 1+ Sodium 131 L Potassium 5.7 H Chloride 100 Carbon Dioxide 18.2 L Anion Gap 13 BUN 24 H Creatinine 1.05 Estim Creat Clear Calc 70.01 Est GFR (MDRD) Non-Af 74 BUN/Creatinine Ratio 22.4 H Glucose 121 H Calcium 9.1 Troponin T High Sens 22 Troponin T Hi Sens 2 Hr 31 H Radiography Diagnostic Testing: Clinical Impression(s) from Imaging Studies Chest X-Ray 10/16/24 17:03 IMPRESSION: Bibasilar effusion/atelectasis. Reading Location: [facility] Chest CTA 10/16/24 20:00 IMPRESSION: No evidence of filling defect to suggest pulmonary embolism. Moderate appearing LAD coronary calcification. Pericardial effusion, anteriorly measuring up to 1.4 cm, clinically correlate for significance. Small bilateral pleural effusions with adjacent areas of partial passive collapse, atelectasis. A few bandlike opacities left base, right middle lobe and right upper lobe may represent areas of atelectasis. One or more dose reduction techniques were used (e.g., Automated exposure control, adjustment of the mA and/or kV according to patient size, use of iterative reconstruction technique). Reading Location: [facility] EKG Initial EKG: Attestation: I personally reviewed and interpreted this EKG as follows: Comments: Sinus tachycardia ventricular rate of 108 bpm. Left anterior fascicular block is noted Management Discussion w/another healthcare provider: Hospitalist (Dr Anderson) Discharge Plan Dx/Rx/DC Orders Clinical Impression: Chest pain, Essential hypertension, Elevated troponin Disposition Disposition: Acute Care Hospital [facility]
[2024-10-16 19:35] LABS: Troponin T High Sens 2 HR 31 ng/L (<=22)
--- NOTE | 2024-10-16 20:00 | CT_ITS ---
PROCEDURE: CTA CHEST W/WO CONTRAST REASON FOR EXAM: CHEST PAIN TECHNIQUE: CTA of the chest with coronal and sagittal and MIP reformatted images 3D reconstructions. IV CONTRAST: 100 cc Isovue 370 COMPARISON: Preceding chest radiograph FINDINGS: No evidence of filling defect to suggest pulmonary embolism. Ectatic thoracic aorta appears within limits. Undulating right brachiocephalic artery. Mild atherosclerotic calcification of the aortic arch. Moderate appearing LAD coronary calcification. Pericardial effusion anteriorly measuring around 1.4 cm. Sequela of previous granulomatous disease noted with right-sided granuloma and hilar node calcification. Small bilateral pleural effusions with adjacent areas of partial passive collapse, atelectasis. A few bandlike opacities left base, right middle lobe and right upper lobe may represent areas of atelectasis. Scar at the lingula. The central airways are patent. Limited images upper abdomen appear within limits. Multilevel lower cervical spine spondylosis/discogenic change. CT/CTA Chest W/WO Contrast IMPRESSION: No evidence of filling defect to suggest pulmonary embolism. Moderate appearing LAD coronary calcification. Pericardial effusion, anteriorly measuring up to 1.4 cm, clinically correlate f or significance. Small bilateral pleural effusions with adjacent areas of partial passive collap se, atelectasis. A few bandlike opacities left base, right middle lobe and right upper lobe may represent areas of atelectasis . One or more dose reduction techniques were used (e.g., Automated exposure contr ol, adjustment of the mA and/or kV according to patient size, use of iterative reconstruction technique). Reading Location: [id number]
[2024-10-16] MEDS: Aspirin 325 MG Tablet PO (20:06)
--- NOTE | 2024-10-16 20:10 | ED.RN ---
Dr. Jain notified of BP of
--- NOTE | 2024-10-16 21:07 | HP.PCM.HOS_ITS ---
HPI - General General Date of Admission: 10/16/24 Date of Service: 10/16/24 Chief Complaint: Chest pain HPI Narrative The patient is a 74 y/o M w/ PMHx: CKD stage II per GFR trending, HTN, HLD, GERD, Known LAFB/mild LVH following with normal LV systolic function prior with Dr. Torres with most recent visit noted 08/26/23 for preoperative cardiovascular risk assessment for carpal tunnel surgery with most recent evaluation with negative exercise stress testing in 2022 started on losartan during that visit who presents to the [facility] ED on 10/16/2024 with complaint of chest discomfort noting that over the past couple weeks she has had intermittent episodes of chest pain across his chest worse with deep inspiratory effort typically improving when he self administers naproxen with also incidentally noted recent deep tissue massage including of the chest as well as also noted episodes of discomfort following overeating where he noted that he had more midsternal discomfort that radiated toward his back with no exertional symptoms noting that he has a upcoming appointment with Dr. Torres on but given ongoing and persistent prompted eventual ED evaluation to be cautious. He notes when he had his discomfort primarily following a heavy meal his discomfort at that time had been 7 out of 10 in severity. He currently denies any discomfort. Workup in the ED included T98.1, heart rate 109, BP 112/62, respiratory rate 17, 95% on room air with most recent repeat vital signs heart rate 87, BP 91/68, respiratory rate 17, 95% on room air, CBC with WBC 15.3, hemoglobin 13.6, platelet count not performed secondary to clumping with left shift, BMP with sodium 131, chloride 100, potassium 5.7 noted to be hemolyzed however, carbon oxide 18.2, anion gap 13, BUN/creatinine 20/1.05, GFR 74, glucose 121, initial troponin 22 with repeat delta 31, chest x-ray with bibasilar effusion/atelectasis, follow-up chest CTA with no filling defect to suggest pulmonary embolism, moderate appearing LAD coronary calcification, pericardial effusion anteriorly measuring up to 1.4 cm, small bilateral pleural effusions with adjacent areas of partial passive collapse/atelectasis, few bandlike opacities left base, right middle lobe and right upper lobe possibly areas of also atelectasis, EKG with sinus tachycardia with a left anterior fascicular block unchanged from previous with no acute evidence of ischemia. In the ED patient ministered aspirin 325 mg p.o. x 1. PFSH Medical History (Updated 10/16/24 @ 21:[address] Janna Anderson MD) Obesity CKD (chronic kidney disease), stage II LAFB (left anterior fascicular block) Essential hypertension Hyperlipidemia Vitamin D deficiency MRSA (methicillin resistant Staphylococcus aureus) Hiatal hernia with GERD Wears glasses Injury of head and neck Non-smoker History of stress test Normal stress echocardiogram Ventral incisional hernia without obstruction or gangrene Normal colonoscopy Arthritis Personal history of colonic polyps Home Medications ?Medication ?Instructions ?Recorded ?Last Taken ?Type losartan 25 mg tablet 25 mg PO DAILY #90 tabs 08/03 01/23 Unknown Rx Allergy/AdvReac Type Severity Reaction Status Date / Time No Known Allergies Allergy Verified 10/16/24 16:12 Family History (Updated 10/16/24 @ 21:[address] Janna Anderson MD) Mother Colon cancer Brother Esophagus cancer Father , Age 76. CAD (coronary artery disease) Heart disease Hypertension Myocardial infarction Surgical History (Updated 10/16/24 @ 21:[address] Janna Anderson MD) History of hernia repair History of carpal tunnel surgery of left wrist History of cardiac catheterization History of colon resection Hx of total hip arthroplasty (~2015) History of carpal tunnel surgery of right wrist Social History (Updated 10/16/24 @ 21:[address] Janna Anderson MD) household members: spouse Smoking Status: Never smoker alcohol intake: never substance use type: does not use ROS ROS Narrative Admission Review of Systems: CONSTITUTIONAL: No weight loss, fever, chills, + weakness or fatigue. HEENT: Eyes: No visual loss, blurred vision, double vision or yellow sclerae. Ears, Nose, Throat: No hearing loss, sneezing, congestion, runny nose or sore throat. SKIN: No rash or itching, lesions, wounds. CARDIOVASCULAR: + Intermittent chest discomfort/tightness. No palpitations, edema, orthopnea, syncopal events. RESPIRATORY: No shortness of breath, cough or sputum, wheezing, hemoptysis. GASTROINTESTINAL: + Dyspepsia, fullness sensation. No anorexia, nausea, vomiting or diarrhea, abdominal pain, melena, BRBPR. GENITOURINARY: No dysuria, frequency, urgency or retention. NEUROLOGICAL: No headache, dizziness, syncope, paralysis, ataxia, numbness or tingling in the extremities, focal weakness, change in bowel or bladder control, seizure. MUSCULOSKELETAL: + muscle, back pain, joint pain or stiffness. HEMATOLOGIC: No anemia, bleeding or bruising. LYMPHATICS: No enlarged nodes. No history of splenectomy. PSYCHIATRIC: No history of depression or anxiety. ENDOCRINOLOGIC: No reports of sweating, cold or heat intolerance. No polyuria or polydipsia. ALLERGIES: No history of asthma, hives, eczema or rhinitis. Vital Signs Vital Signs Vital Signs: 10/16/24 16:07 10/16/24 16:48 10/16/24 17:07 Temperature 98.1 F Temperature Source Temporal Pulse Rate 109 H 98 Respiratory Rate 17 17 Blood Pressure 112/62 110/62 Blood Pressure Mean 78 78 Pulse Ox 95 95 Oxygen Delivery Method Room Air Room Air Room Air 10/16/24 18:00 10/16/24 19:00 10/16/24 20:00 Temperature Temperature Source Pulse Rate 95 90 87 Respiratory Rate 22 H 24 H 19 H Blood Pressure 135/57 H 112/63 91/68 Blood Pressure Mean 83 79 75 Pulse Ox 95 93 95 Oxygen Delivery Method Room Air Room Air Room Air Weight Weight: 222 lb Body Mass Index (BMI) 32.8 Physical Exam Narrative Physical Examination: General: Awake, alert, oriented x 3 and cooperative, seated upright in the ED bed in no apparent distress, denies any chest discomfort or current dyspepsia. Skin: Normal color, normal turgor, no icterus, no cyanosis. HEENT: AT/NC, EOMI, PERRLA, MMM, no carotid bruits or JVD noted. Lungs: Diminished, greater bases, no evidence of any distress, mildly decreased inspiratory effort, no rales, ronchi or wheezing. Heart: Regular rate and rhythm; no gallop, rub audible, reproducible anterior discomfort with palpation. Abdomen: Soft, obese, NTTP, ND, normal BS, no appreciated HSM. Extremities: No cyanosis, clubbing, or edema. Neurological: Patient awake, alert, oriented as noted, cognitive function intact; pupils equally reactive to light and accommodation, cranial nerves gross normal, moving all 4 extremities, no focal deficits, strength moderately globally decreased secondary to acute presentation complaints. Psychiatric: Affect appears fatigued otherwise normal, no acute evidence of depressive or anxiety feelings. Results Lab / Micro Data 10/16/24 16:59 10/16/24 16:59 Labs: Laboratory Results - last 24 hr 10/16/24 16:59: WBC 15.3 H, RBC 4.47 L, Hgb 13.6, Hct 41.9, MCV 93.7, MCH 30.4, MCHC 32.5, RDW Std Deviation 46.5 H, RDW Coeff of Young 13.4, Plt Count TNP, MPV 12.5 H, Immature Gran % (Auto) 0.700, Neut % (Auto) 78.1 H, Lymph % (Auto) 8.5 L , [place] % (Auto) 11.3 H, Eos % (Auto) 1.1, Baso % (Auto) 0.3, Absolute Neuts (auto) 12.0 H, Absolute Lymphs (auto) 1.30, Nucleated RBC % 0, Diff Path Review May foll, Hypersegmented Neuts RARE H, Atypical Lymphocytes 1+, Platelet Estimate ADEQUATE, Anisocytosis 1+, [place] Cells 1+, Sodium 131 L, Potassium 5.7 H , Chloride 100, Carbon Dioxide 18.2 L, Anion Gap 13, BUN 24 H, Creatinine 1.05, Estim Creat Clear Calc 70.01, Est GFR (MDRD) Non-Af 74, BUN/Creatinine Ratio 22.4 H, Glucose 121 H, Calcium 9.1, Troponin T High Sens 22 10/16/24 18:49: Troponin T Hi Sens 2 Hr 31 H Imaging Radiology Impression Chest X-Ray 10/16/24 17:03 IMPRESSION: Bibasilar effusion/atelectasis. [facility] Chest CTA 10/16/24 20:00 IMPRESSION: No evidence of filling defect to suggest pulmonary embolism. Moderate appearing LAD coronary calcification. Pericardial effusion, anteriorly measuring up to 1.4 cm, clinically correlate for significance. Small bilateral pleural effusions with adjacent areas of partial passive collapse, atelectasis. A few bandlike opacities left base, right middle lobe and right upper lobe may represent areas of atelectasis. One or more dose reduction techniques were used (e.g., Automated exposure control, adjustment of the mA and/or kV according to patient size, use of iterative reconstruction technique). Reading Location: [id number] Assessment & Plan Assessment/Plan (1) Chest pain: PLAN: Plan The patient is a 74 y/o M w/ PMHx: CKD stage II per GFR trending, HTN, HLD, GERD, Known LAFB/mild LVH following with normal LV systolic function prior with Dr. Torres with most recent visit noted 08/26/23 for preoperative cardiovascular risk assessment for carpal tunnel surgery with most recent evaluation with negative exercise stress testing in 2022 started on losartan during that visit who presents to the [facility] ED on 10/16/2024 with complaint of chest discomfort noting that over the past couple weeks she has had intermittent episodes of chest pain across his chest worse with deep inspiratory effort typically improving when he self administers naproxen with also incidentally noted recent deep tissue massage including of the chest as well as also noted episodes of discomfort following overeating where he noted that he had more midsternal discomfort that radiated toward his back with no exertional symptoms. #1. Chest Pain w/ incidentally noted coronary calcifications on imaging; however, atypical with incidentally noted pericardial effusion: EKG in ED sinus tachycardia with left anterior fascicular block similar to previous,chest x-ray with bibasilar effusion/atelectasis, follow-up chest CTA with no filling defect to suggest pulmonary embolism, moderate appearing LAD coronary calcification, pericardial effusion anteriorly measuring up to 1.4 cm, small bilateral pleural effusions with adjacent areas of partial passive collapse/atelectasis, few bandlike opacities left base, right middle lobe and right upper lobe possibly areas of also atelectasis, initial trop 22 with repeat delta mildly increased to 31. Will admit to PCU, place on a monitored bed to assure no acute myocardial infarction with serial cardiac enzymes and EKGs. If repeat serial cardiac enzymes and EKGs were unremarkable will pursue a.m. cardiac stress testing but high suspicion related to in large part atelectasis present. Will obtain full echocardiogram given evidence of pericardial effusion concurrently. Magnesium level requested. FLP in AM. Maintain on aspirin. #2. Leukocytosis, unclear exact etiology: Patient does have leukocytosis, no recent specific symptoms concerning for infectious process however to be cautious will obtain procalcitonin, CRP and ESR, judiciously hydrate, repeat CBC in AM. #3. Incidentally noted significant diffuse atelectasis: CTPA notable atelectasis evident, no obvious infiltrate, evaluation for infectious process as noted above, notable will initiate antibiotics, obtain full respiratory viral panel, COVID, sputum culture, urine antigens. #4. Hyperkalemia, falsely elevated level, secondary to hemolysis: Admission K likely falsely elevated given hemolysis, will repeat level in AM. #5. Hypertension: Continue home regimen including losartan, PRN hydralazine. #6. Hyperlipidemia: Per current list not on regimen, FLP in AM. #7. Chronic Kidney Disease Stage II per GFR trending: Admission BUN/Cr 20/1.05, GFR 74, baseline renal function primarily 0.7-0.9, repeat BMP in AM. #8. GERD: Given dyspepsia symptoms and potential worse discomfort with intake will place on PPI with GI cocktail x 1 now. #9. Obesity: Weight loss and lifestyle changes encouraged. #10. DVT Prophylaxis: Lovenox. #11. CODE status: Patient HCPISHMAEL is his who is present and living will is currently in place. Discussed CODE status at length including difference between FULL code, DNR-CCA and DNR-CC status. Following discussions about the differences in these status, requested Full Code status. Advanced Care Planning Face to Face Time: 16 minutes. Charges/Coding Visit Charges Inpatient E&M: 44410 Init Hosp L2 Procedures Hospitalists Procedures: 17375 Advncd Care Plan 30 Min
--- NOTE | 2024-10-16 21:12 | EKG12_ITS ---
Test Reason : ADMISSION EKG Blood Pressure : */* mmHG Vent. Rate : 95 BPM Atrial Rate : 95 BPM P-R Int : 194 ms QRS Dur : 98 ms QT Int : 378 ms P-R-T Axes : 36 -47 33 degrees QTcB Int : 475 ms Normal sinus rhythm Possible Left atrial enlargement Left anterior fascicular block Abnormal ECG When compared with ECG of 16-Oct-2024 16:17, MANUAL COMPARISON REQUIRED DATA IS UNCONFIRMED Confirmed by JESÚS LOO, DARIUS ([id number]), editor publications KARISSA DUMAS ([id number]) on 10/17/2024 8:22:43 AM Referred By: Confirmed By: DARIUS ESPINOSA MD
[2024-10-16 21:59] LABS: Magnesium 2.5 mg/dL (1.5-2.2)
[2024-10-16 22:11] LABS: Troponin T High Sens 4 HR 22 ng/L (<=22)
--- NOTE | 2024-10-16 22:12 | CASEMGMT ---
Care Management Face to Face with patient for initial transition planning/care coordination assessment in the ED. This abstract writer introduced self and role at [facility]. Patient alert and oriented. Patient's , Candie, bedside and helped with answering questions. Care providers, pharmacy, and demographics verified. Admitting Diagnosis: chest pain Other diagnosis history: CKD stage II per GFR trending, HTN, HLD, GERD PCP: Gerber Everett Specialists: Dr. Torres, [place] for glasses Preferred Pharmacy: [facility] Insurance: Medicare A B (primary). for Life (secondary). Prescription Benefit: yes Living Will/HPOA: yes, with Candie listed as primary. Son, Noam, listed as secondary. ( states intent to bring in if able to find at home). LNOK: and 4 sons Living Arrangements: with in 2 story home but first floor living. 2 steps to enter. Independent at baseline. Transportation: patient drives. DME: grab bars, shower seat, blood pressure cuff, pulse ox, walker, rollator, crutches. HHC: none SNF/Rehab: none Community Resources: none Patient goals: Patient wishes to discharge home, denies need for home health care at this time. Patient denies any further needs or concerns at this time. Disposition Plan: admission to acute; RN CM/SW to follow for discharge planning needs that may arise. Marlin Young, FILLER SHREDDING MACHINE LOADER, ATTRACTION WORKER
--- NOTE | 2024-10-16 22:40 | ECHOCS_ITS ---
Reason For Study Reason For Study: Pericardial Effusion Procedure This was a 2D Doppler, Color Flow transthoracic echocardiogram. The study was technically difficult. Contrast injection was performed. Exam performed in department. Left Ventricle Normal LV size. Left ventricular systolic function is normal. The left ventricular ejection fraction is 65 %. Stage 1 diastolic dysfunction. No regional wall motion abnormalities noted. Right Ventricle Normal RV size. Normal systolic function. Atria Normal left atrium. Normal right atrium. Mitral Valve There is mild mitral annular calcification. Systolic anterior motion of the mitral valve. Mild (1+) eccentric mitral valve insufficiency. Tricuspid Valve Normal tricuspid valve. Mild (1+) tricuspid valve insufficiency. Pulmonary artery systolic pressure is 28 mmHg. Aortic Valve Normal aortic valve. Pulmonic Valve Normal pulmonic valve. Great Vessels Normal aortic root. The pulmonary artery is normal size. Inferior vena cava collapse with sniff. Pericardium/Pleural Small (<1.0 cm) pericardial effusion. Medication Diluted definity 2.5ml given slow IV push to enhance endocardial definition. MMode/2D Measurements & Calculations LVIDd: 4.0 cm IVSd: 1.1 cm LVOT diam: 2.4 cm LVIDs: 2.5 cm LVPWd: 1.7 cm RVDd: 3.2 cm FS: 37.8 % LVOT area: 4.4 cm2 Ao root diam: 3.8 cm LAV(MOD-bp): 59.3 ml LVAd ap4: 31.8 cm2 LAV(MOD-bp) Indexed: 27.4 ml/m2 LVLd ap4: 7.9 cm LAV(MOD-sp2): 59.3 ml EDV(MOD-sp4): 106.8 ml LAV(MOD-sp4): 56.6 ml EDV(sp4-el): 108.2 ml LVAs ap4: 16.7 cm2 LVLs ap4: 6.2 cm ESV(MOD-sp4): 37.7 ml ESV(sp4-el): 38.0 ml EF(MOD-sp4): 64.7 % EF(sp4-el): 64.9 % SV(MOD-sp4): 69.1 ml SV(sp4-el): 70.2 ml LA A4 area: 19.2 cm2 SI(MOD-sp4): 31.9 ml/m2 LA dimension(2D): 4.8 cm RA A4 area: 20.7 cm2 Time Measurements MV dec time: 0.24 sec Doppler Measurements & Calculations MV E max kole: 83.5 cm/sec Lat Peak E' Kole: 7.9 cm/sec Med Peak E' Kole: 9.1 cm/sec MV A max kole: 114.5 cm/sec E/E' lat: 10.6 E/E' med: 9.1 MV E/A: 0.73 MV V2 max: 128.4 cm/sec MV P1/2t max kole: 96.1 cm/sec Ao V2 max: 139.5 cm/sec MV max P.6 mmHg MV P1/2t: 76.4 msec Ao max P.8 mmHg MV V2 mean: 75.2 cm/sec MV dec slope: 368.2 cm/sec2 Ao V2 mean: 104.3 cm/sec MV mean P.6 mmHg MVA(P1/2t): 2.9 cm2 Ao mean P.9 mmHg MV V2 VTI: 20.2 cm Ao V2 VTI: 28.6 cm MARBIN(V,D): 3.4 cm2 LV V1 max: 106.8 cm/sec MR max kole: 571.6 cm/sec PA V2 max: 113.6 cm/sec LV V1 max P.6 mmHg MR max P.7 mmHg TR max kole: 247.9 cm/sec TR max P.6 mmHg ECHO/Echo Complete W/ Contrast Interpretation Summary Normal LV size. Left ventricular systolic function is normal. The left ventricular ejection fraction is 65 %. There is mild mitral annular calcification. Systolic anterior motion of the mitral valve. Stage 1 diastolic dysfunction. Contrast injection was performed. Ordering Physician: Janna Anderson Performed By: Rodo Goldstein RCS
[2024-10-16 23:29] LABS: Procalcitonin 0.06 ng/mL (<=0.10)
[2024-10-16 23:33] LABS: Erythrocyte Sedimentation Rate 31 mm/hr (0-20)
[2024-10-16] MEDS: 0.9% Saline Lock 10 ML Syringe IV (23:41)
[2024-10-16] MEDS: 0.9% Normal Saline (1000mL) 1,000 ML 100 ML IV (23:41)
[2024-10-16] MEDS: Pantoprazole Sodium 20 MG Tablet PO (23:42)
[2024-10-16] MEDS: Lidocaine 2% Viscous15 ML UDC 15 ML PO (23:42)
[2024-10-16] MEDS: Mag Hydrox/Al Hydrox/Simeth 30 ML UDC PO (23:42)
[2024-10-17 04:28] VITALS: BMI 33.1
[2024-10-17 06:14] VITALS: BP 133/68; PULSE 85; RESP 16; TEMP 36.8; O2SAT 94
[2024-10-17] MEDS: Losartan Potassium 25 MG Tablet PO (06:15)
[2024-10-17 07:18] LABS: Absolute Lymphocyte Count 0.98 X10^3/uL (0.83-4.51); Absolute Neutrophil Count 7.4 X10^3/uL (2.0-7.7); Basophil# 0.05 X10^3/uL; Basophil% 0.5 % (0-1); Eosinophil# 0.26 X10^3/uL; Eosinophils% 2.6 % (0-5); Hematocrit 36.7 % (40-54); Lymphocyte # 0.98 X10^3/ul (0.83-4.51); Lymphocyte % 9.8 % (19-41); Mean Corp Hgb Conc 32.7 g/dL (32-36); Mean Corpuscular Hgb 30.2 pg (27.0-32.0); Mean Corpuscular Volume 92.2 fL (80-94); Mean Platelet Vol. 10.4 fl (6.2-12.0); Monocyte# 1.28 X10^3/uL; Monocyte% 12.8 % (0-10); NRBC Flagged by Analyzer 0 % (0-5); Neutrophil # 7.37 X10^3/uL (2.7-7.7); Neutrophil % 73.8 % (47-70); Platelet Count 198 K/mm3 (150-450); RBC Distribution Width CV 13.2 % (11.6-14.6); Red Blood Count 3.98 M/mm3 (4.6-6.2)
[2024-10-17 08:06] LABS: Cholesterol 132 mg/dL (<=200); High Density Lipoprotein 46 mg/dL; Low Density Lipoprotein Calc. 73 mg/dL; Triglycerides 64 mg/dL; Very Low Density Lipoprotein 13 mg/dL (5-40); cholesterol:hdl ratio screen 2.86
[2024-10-17 08:32] LABS: ALB/GLOB Ratio 1.1 RATIO (0.9-2.4); AST(SGOT) 30 U/L (<=37); Alanine Aminotransfer ALT/SGPT 15 U/L (<=46); Albumin, Serum 3.3 g/dL (3.4-4.8); Alkaline Phosphatase 65 U/L (40-129); Anion Gap 11 (5-15); BUN 22 mg/dL (4-19); BUN/Creat Ratio 29.2 RATIO (10-20); Calcium,Total 8.2 mg/dL (7.6-11.0); Carbon Dioxide 24.2 mmol/L (21.0-32.0); Chloride 102 mmol/L (98-108); Creatinine, Serum 0.75 mg/dL (0.70-1.20); EST Glomerular Filtration Rate 93 (>60); Estimated Creatinine Clearance 92.38 ml/min (50-250); Glucose 112 mg/dL (70-99); Protein, Total 6.3 g/dL (5.9-8.4); Sodium Level 137 mmol/L (133-145); Total Bilirubin 0.58 mg/dL (0.00-1.30)
[2024-10-17 10:00] VITALS: BP 128/72; PULSE 84; RESP 17; TEMP 37.2; O2SAT 96
--- NOTE | 2024-10-17 11:46 | STRESSREP ---
Stress Test Report Pharmacologic myocardial perfusion stress test. 74-year-old male with a history of chest pain Resting EKG demonstrates sinus rhythm with a rate of 90 bpm. Resting blood pressure is 142/78 mmHg. 0.4 mg of regadenoson was infused per usual protocol followed by rapid intravenous saline flush injection. Continuous EKG monitoring was performed. The maximum heart rate was 100 bpm which was 69% of max impacted heart rate the maximum workload was 1 metabolic equivalent. At rest there were no ST or T wave changes noted to suggest ischemia and at peak infusion nonspecific ST changes were noted which did not meet the criteria for ischemia. No clinical angina is noted. The final blood pressure was 122/68 mmHg. Myocardial perfusion protocol. 14.7 mCi of technetium 99m sestamibi was injected at rest. 0.4 mg of regadenoson was infused per usual protocol. At peak infusion 44.3 mCi of technetium 99m sestamibi was injected stress images were obtained stress and rest images were reconstructed and compared in the short axis vertical long and horizontal long axis. Gated images were also obtained. Perfusion SPECT analysis: Review of the stress images demonstrate normal uptake of tracer noted in all areas of the myocardium. The resting images similar demonstrated normal uptake of tracer noted in all areas of the myocardium. No areas of reversibility are noted to suggest ischemia and no previous infarct is noted. Gated SPECT analysis: The gated ejection fraction is 77%. Conclusion: Normal pharmacologic myocardial perfusion stress test. Preserved ejection fraction.
[2024-10-17] MEDS: Pantoprazole Sodium 20 MG Tablet PO (11:51)
[2024-10-17] MEDS: Aspirin E.C. 81 MG Tablet PO (11:51)
[2024-10-17] MEDS: Acetaminophen 325 MG Tablet 650 MG PO (13:58)
--- NOTE | 2024-10-17 15:39 | PCM.DC ---
Discharge Instructions Diet Discharge Diet: No restrictions DC O2, CPAP, BIPAP needs Home O2 Discharge instructions: No Dressing / Incision Discharge Activity: Return to Normal Activity Weight Bearing Status: Full weight bearing Follow Up Care Test Results: Test results from this visit will be discussed in further detail at your follow-up appointment, if applicable. Discharge Plan Admission Admit Date/Time: 10/16/24 21:07 Primary Reason for Your Visit: non cardiac chest pain Attending Provider: Gerber Devi Primary Care Provider: Gerber Everett Consulting Providers: Janna Anderson Discharge Orders/Prescriptions Prescriptions: New metoprolol succinate 50 mg tablet extended release 24 hr 50 mg PO DAILY Qty: 30 0RF Continued multivitamin [Daily Multi-Vitamin] Tablet 1 tab PO DAILY cholecalciferol (vitamin D3) [D3 DOTS] 50 mcg (2,000 unit) tablet 50 mcg PO DAILY Probiotic 15 billion cell capsule, sprinkle 1 cap PO DAILY Rx Instructions: do not crush/chew/cut; swallow whole OR may open and sprinkle in cold drink/food losartan 25 mg tablet 25 mg PO DAILY Qty: 90 3RF Other Ambulatory Orders: Cardiac Holter Monitor, 48 Hrs (Routine) Timeframe: 2 Days Facility: [facility] - Location: Cardiovascular Services Ordered By: Dr. Gerber Devi Referrals / Follow Up: Gerber Everett DO [Primary Care Provider] - Within 2 Weeks (for check up and blood pressure check) Sapphire Torres MD [Med Staff - Active Staff] - See Referral Note (call for appointment in 4 weeks) Disposition Disposition (needs filled in before D/C Order can be placed): Home, Self Care
--- NOTE | 2024-10-17 15:50 | PCM.DC.SUM ---
Providers Date of Admission: 10/16/24 Date of Discharge: 10/17/24 Primary Care Physician: Dr. Gerber Everett DO Reason For Visit: CHEST PAIN Diagnosis Discharge Diagnosis (1) Chest pain: Status: Acute Code(s): R07.9 - Chest pain, unspecified Plan 1. Noncardiac chest pain #2 nonsustained supraventricular tachycardia #3 essential hypertension #4 elevated troponin-not indicative of any demand ischemia or cardiac injury #5 small pericardial effusion-nonsignificant #6 hyponatremia-not significant Medications at Discharge Home Medications losartan 25 mg tablet 25 mg PO DAILY blood pressure #90 tabs 08/27/23 cholecalciferol (vitamin D3) 50 mcg (2,000 unit) tablet (D3 DOTS) 50 mcg PO DAILY vitamin 10/16/24 lactobacillus combo no.11 15 billion cell sprinkle capsule (Probiotic) 1 cap PO DAILY supplement 10/16/24 multivitamin (Daily Multi-Vitamin tablet) 1 tab PO DAILY vitamin 10/16/24 metoprolol succinate 50 mg tablet,extended release 24 hr 50 mg PO DAILY #30 tabs 10/17/24 Hospital Course Operations None Procedures 2-D Echocardiogram and Nuclear stress test Summary of Care Provided Minutes Spent on Discharge: 31 Hospital Course: This 74-year-old white male was seen in the emergency room at [facility] with chief complaint of chest pain off and on over the past couple of weeks prior to being seen in the emergency room. Patient states the chest pain was across his chest and was worse when he took in a deep breath. Patient states it is relieved after taking Naprosyn. Workup in the emergency room included a CBC which was remarkable for a white blood cell count of 15.3, sodium was 131, glucose was 121, first troponin was 22, second troponin was 31, chest x-ray showed bibasilar effusion/atelectasis, CTA of the chest showed a pericardial effusion measuring 1.4 cm and small bilateral pleural effusions with areas of partial atelectasis. EKG showed a sinus tachycardia with a rate of 108 with a left anterior fascicular block. Patient was placed in observation status on PCU, cardiac enzymes were repeated and were normal, patient underwent a nuclear stress test which was negative for reversible ischemia, patient an echocardiogram which showed a small pericardial effusion and a normal EF and no significant valvular heart disease. Patient's telemetry revealed many unifocal and multifocal PVCs which were asymptomatic, patient in addition had runs of SVT which lasted up to 10 beats which was also asymptomatic. I talked with cardiology by phone (Dr. Torres) he recommended obtaining a 48-hour Holter and placing the patient on metoprolol succinate 50 mg daily. I went over this with the patient and his family. On 10/17/2024, patient was seen and examined: On examination he appeared in good health and spirits. Vital signs as documented. Skin warm and dry and without overt rashes. Neck without JVD, neck was supple, trachea midline, thyroid was normal. Lungs clear bilaterally, normal air movement was noted. Heart exam notable for regular rhythm, normal sounds and absence of murmurs, rubs or gallops. Abdomen unremarkable and without evidence of organomegaly, masses, or abdominal aortic enlargement. Bowel sounds are present, abdomen is not distended. Extremities nonedematous, no cyanosis was noted, no clubbing was noted. Neuro: Cranial nerves II through XII are grossly intact, no focal motor deficits were noted, sensation to light touch and pinprick intact, motor exam 5/5 throughout. Psych: Patient is alert and oriented x3, he does not appear anxious or depressed, he does not appear agitated. Patient was discharged home in stable condition on 10/17/2024. Weight / BMI Weight Weight: 101.8 kg Body Mass Index (BMI) 33.1 ABG / Lab / Microbiology Data 10/17/24 06:35 10/17/24 06:35 Laboratory: Laboratory Results - last 24 hr 10/16/24 16:59: ESR Cancelled, Magnesium 2.5 H, C-React Prot Ext Range 232.00 H 10/16/24 18:49: Troponin T Hi Sens 2 Hr 31 H 10/16/24 21:37: Troponin T Hi Sens 4Hr 22, Procalcitonin 0.06 10/16/24 23:22: ESR 31 H 10/17/24 06:35: WBC 10.0, RBC 3.98 L, Hgb 12.0 L, Hct 36.7 L, MCV 92.2, MCH 30.2, MCHC 32.7, RDW Std Deviation 45.0 H, RDW Coeff of Young 13.2, Plt Count 198, MPV 10.4, Immature Gran % (Auto) 0.500, Neut % (Auto) 73.8 H, Lymph % (Auto) 9.8 L, Mora % (Auto) 12.8 H, Eos % (Auto) 2.6, Baso % (Auto) 0.5, Absolute Neuts (auto) 7.4, Absolute Lymphs (auto) 0.98, Nucleated RBC % 0, Sodium 137, Potassium 4.0, Chloride 102, Carbon Dioxide 24.2, Anion Gap 11, BUN 22 H, Creatinine 0.75, Estim Creat Clear Calc 92.38, Est GFR (MDRD) Non-Af 93, BUN/Creatinine Ratio 29.2 H, Glucose 112 H, Calcium 8.2, Total Bilirubin 0.58, AST 30, ALT 15, Alkaline Phosphatase 65, Total Protein 6.3, Albumin 3.3 L, Globulin 3.0, Albumin/Globulin Ratio 1.1, Triglycerides 64, Cholesterol 132, LDL Cholesterol, Calc 73, VLDL Cholesterol 13, HDL Cholesterol 46, Cholesterol/HDL Ratio 2.86 Radiography Diagnostic Testing: Radiology Impression Chest CTA 10/16/24 20:00 IMPRESSION: No evidence of filling defect to suggest pulmonary embolism. Moderate appearing LAD coronary calcification. Pericardial effusion, anteriorly measuring up to 1.4 cm, clinically correlate for significance. Small bilateral pleural effusions with adjacent areas of partial passive collapse, atelectasis. A few bandlike opacities left base, right middle lobe and right upper lobe may represent areas of atelectasis. One or more dose reduction techniques were used (e.g., Automated exposure control, adjustment of the mA and/or kV according to patient size, use of iterative reconstruction technique). Reading Location: [id number] Echocardiogram 10/16/24 22:40 Interpretation Summary Normal LV size. Left ventricular systolic function is normal. The left ventricular ejection fraction is 65 %. There is mild mitral annular calcification. Systolic anterior motion of the mitral valve. Stage 1 diastolic dysfunction. Contrast injection was performed. Ordering Physician: Janna Anderson Performed By: Rodo Goldstein RCS D/C Instructions Discharge Diet: No restrictions Weight Bearing Status: Full weight bearing DC O2, CPAP, BIPAP Needs Home O2 Discharge instructions: No Meaningful Use Info Meaningful Use Meaningful Use Diagnoses (Choose all that apply): None applicable Ischemic Stroke Statin Dosing Therapy Reference: STATIN DOSE THERAPY REFERENCE: * Patients > 75 years receive moderate or high dose statin therapy. * Patients 75 years or YOUNGER should receive HIGH intensity statin dose unless contraindicated. You will be required to document reason for non-treatment if statin daily dose does not meet guidelines. HIGH DOSE STATIN THERAPY DAILY Atorvastatin > than or = to 40 mg Rosuvastatin > than or = to 20 mg Amlodipine + Atorvastatin > than or = to 2.5/40 mg Ezetimibe + Simvastatin 10/80 mg Simvastatin 80mg Discharge Plan Admission Admit Date/Time: 10/16/24 21:07 Primary Reason for Your Visit: non cardiac chest pain Attending Provider: Gerber Devi Primary Care Provider: Gerber Everett Consulting Providers: Janna Anderson Discharge Orders/Prescriptions Prescriptions: New metoprolol succinate 50 mg tablet extended release 24 hr 50 mg PO DAILY Qty: 30 0RF Continued multivitamin [Daily Multi-Vitamin] Tablet 1 tab PO DAILY cholecalciferol (vitamin D3) [D3 DOTS] 50 mcg (2,000 unit) tablet 50 mcg PO DAILY Probiotic 15 billion cell capsule, sprinkle 1 cap PO DAILY Rx Instructions: do not crush/chew/cut; swallow whole OR may open and sprinkle in cold drink/food losartan 25 mg tablet 25 mg PO DAILY Qty: 90 3RF Other Ambulatory Orders: Cardiac Holter Monitor, 48 Hrs (Routine) Timeframe: 2 Days Facility: [facility] - Location: Cardiovascular Services Ordered By: Dr. Gerber Devi Referrals / Follow Up: Sapphire Torres MD [Med Staff - Active Staff] - See Referral Note (call for appointment in 4 weeks) Gerber Everett DO [Primary Care Provider] - Within 2 Weeks (for check up and blood pressure check) Disposition Disposition (needs filled in before D/C Order can be placed): Home, Self Care Charges/Coding Visit Charges Inpatient E&M: 52446 Disch Hosp >30min
[2024-10-17 16:00] VITALS: BP 117/67; PULSE 71; RESP 16; TEMP 36.8; O2SAT 97
--- NOTE | 2024-10-17 16:00 | CASEMGMT ---
Patient has order for discharge. RN CM in to discuss needs at discharge, at bedside. Patient denies needs or help at discharge. Patietn had no further questions or concerns.
--- NOTE | 2024-10-17 17:11 | PHA.DC_ITS ---
Pharmacy [place] Med Reconciliation Pharmacy Service has performed discharge medication reconciliation for this patient. Unable to chemical dependency counselor prior to discharge, medications reviewed. The patient's discharge medication list was reviewed for discrepancies and discrepancies were resolved. Medications at Discharge Home Medications losartan 25 mg tablet 25 mg PO DAILY blood pressure #90 tabs 08/27/23 cholecalciferol (vitamin D3) 50 mcg (2,000 unit) tablet (D3 DOTS) 50 mcg PO DAILY vitamin 10/16/24 lactobacillus combo no.11 15 billion cell sprinkle capsule (Probiotic) 1 cap PO DAILY supplement 10/16/24 multivitamin (Daily Multi-Vitamin tablet) 1 tab PO DAILY vitamin 10/16/24 metoprolol succinate 50 mg tablet,extended release 24 hr 50 mg PO DAILY #30 tabs 10/17/24
== END 2024-10-17 15:48 | disposition home or self-care (01) ==
LOC: ED 22:04 → PCU 22:21
PROVIDERS: Admitting Provider Family Medicine; Emergency Provider Emergency Medicine; PCP Family Medicine; Visit Provider Internal Medicine
DX: R07.9 Chest pain, unspecified (principal); I47.10 Supraventricular tachycardia, unspecified; I12.9 Hypertensive chronic kidney disease with stage 1 through stage 4 chronic kidney disease, or unspecified chronic kidney disease; N18.2 Chronic kidney disease, stage 2 (mild); R79.89 Other specified abnormal findings of blood chemistry; E78.5 Hyperlipidemia, unspecified; I31.39 Other pericardial effusion (noninflammatory); E87.1 Hypo-osmolality and hyponatremia; E87.5 Hyperkalemia; E55.9 Vitamin D deficiency, unspecified; K21.9 Gastro-esophageal reflux disease without esophagitis; K44.9 Diaphragmatic hernia without obstruction or gangrene; M19.90 Unspecified osteoarthritis, unspecified site; E66.9 Obesity, unspecified; Z68.32 Body mass index [BMI] 32.0-32.9, adult; Z79.899 Other long term (current) drug therapy
CPT/HCPCS: 36415; 71045; 71275; 78452; 80048; 80053; 80061; 83735; 84145; 84484; 85025; 85652; 86140; 93005; 93017; 93306; 94668; 96360; 96361; 99221; 99285; A9500; Q9957; Q9967; A4216; C8929; G0378; J2785

== ENCOUNTER → 2024-10-26 | Outpatient (CLI) | payer MEDICARE, OTHER, SELFPAY | END | disposition home or self-care (01) | LOC: PSN 12:05 | PROVIDERS: PCP Family Medicine; Referring Provider Internal Medicine; Visit Provider Internal Medicine | DX: I47.10 Supraventricular tachycardia, unspecified (principal) | CPT/HCPCS: 93225; 93226 ==